=== PATIENT | male | born 1990 | race Caucasian/White ===

== ENCOUNTER 2016-10-03 01:30 | Emergency (ER) | payer BC ==
[2016-10-03] MEDS ORDERED: Sodium Chloride 0.9% 1,000 ML IV ONE (01:38)
[2016-10-03] MEDS ORDERED: Pantoprazole 40 MG Vial IVPUSH ONE (01:40)
[2016-10-03] MEDS ORDERED: Ondansetron 4 MG/2 ML SDV IVPUSH ONE (01:40)
[2016-10-03] MEDS ORDERED: MVI, Adult with Vitamin K 10 ML, Thiamine 100 MG, Folic Acid 1 MG, Magnesium Sulfate 3 ... IV SCH ×5 (01:45)
--- NOTE | 2016-10-03 01:52 | EDM.PDOC ---
ED HPI SEIZURE COMPLAINT - General Stated Complaint: UNCONSIOUS,ETOH Time Seen by Provider: 10/03/16 01:30 Source: Reports: Patient, EMS, Family (girlfriend arrived later) History Limitations: Reports: Intoxication - History of Present Illness INITIAL COMMENTS - FREE TEXT/NARRATIVE: 25 years old w lopez come to the ed after he passed out and fell of a bar chair. Witnessed (girlfriend), no trauma, went slowly down on the floor.EMS was called. As the pt arrived here in the ed, he was intoxicated, not responding to voice but strong pain stimuli. No family member was present. No seizure activity was noticed. The pt is a [employer] officer. This is his first visit to this ed. Symptom Onset Date: 10/02/16 Symptom Onset Time: 14:00 Timing/Duration: Reports: hour(s): Event Occurred (Where): other (Bar) Event (Witnessed/Unwitnessed): witnessed Location: Reports: generalized Severity: moderate Context: Reports: recent ETOH Pre Event Symptom(s): Reports: confusion, nausea/vomiting Event Symptoms: Reports: syncope - Related Data Allergies/ADRs: Allergies Allergy/AdvReac Type Severity Reaction Status Date / Time No Known Allergies Allergy Verified 10/03/16 01:50 Home Meds: Home Meds NK [No Known Home Meds] 10/03/16 [History] ED ROS GENERAL - Review of Systems Review Of Systems: Unable To Obtain - Physical Exam Exam: See Below Exam Limited By: Intoxication General Appearance: alert, WD/WN, obtunded, mild distress, moderate distress Eye Exam: bilateral eye: other (pinpoint pupils) Ears: normal external exam, normal canal, hearing grossly normal Nose: normal inspection, normal mucosa, no blood Throat/Mouth: Normal inspection, Normal lips, Normal teeth, Normal gums, Normal oropharynx, Normal voice, No airway compromise Head Exam: atraumatic, normocephalic Neck: normal inspection, supple, non-tender, full range of motion Respiratory/Chest: no respiratory distress, lungs clear, normal breath sounds, no accessory muscle use, chest non-tender Cardiovascular: normal peripheral pulses, regular rate, rhythm, no edema, no gallop, no JVD, no murmur, no rub GI/Abdominal: normal bowel sounds, soft, non tender, no organomegaly, no distention, no abnormal bruit, no mass (Male) Exam: No hernia, Normal inspection Rectal (Males) Exam: Deferred Neuro Exam (Abbreviated): unresponsive (to voice, responds to painful stimuly) Back Exam: normal inspection, full range of motion, NT Extremities: normal inspection, normal range of motion, non-tender, no pedal edema, normal capillary refill Psychiatric: other (intoxicated) Skin Exam: Warm, Dry, Intact, Normal color, No rash Course - Vital Signs Text/Narrative:: 25 years old w m come to the ed after he passed out and fell of a bar chair. Witnessed (girlfriend), no trauma, went slowly down on the floor.EMS was called. As the pt arrived here in the ed, he was intoxicated, not responding to voice but strong pain stimuli. No family member was present. No seizure activity was noticed. The pt is a [employer]. This is his first visit to this ed. PE: Obtunded, ETOH Intoxicated Labs: ETOH: 0.260 Imaging Not insicated Impression: ETOH intoxicated Tx: Banana bad, NS Reexam: Pt is ambulating fine Plan: D/C to home with SO Last Recorded V/S: Last Vital Signs Temp 36.8 C 10/03/16 01:30 Pulse 102 H 10/03/16 01:30 Resp 16 10/03/16 01:30 BP 122/66 10/03/16 01:45 Pulse Ox 96 10/03/16 01:30 - Orders/Labs/Meds Orders: Active Orders 24 hr Category Date Time Status MVI, Adult with Vitamin K [Infuvite Adult] 10 ml Med 10/03/16 01:45 Active Thiamine [Vitamin B-1] 100 mg Folic Acid 1 mg Magnesium Sulfate [Magnesium Sulfate 50%] 3 gm Sodium Chloride 0.9% [Normal Saline] 1,000 ml IV ASDIRECTED Sodium Chloride 0.9% [Normal Saline] 1,000 ml Med 10/03/16 04:45 Active IV ASDIRECTED Medication Orders Multivitamins/Minerals 10 ml/Thiamine HCl 100 mg/ Folic Acid 1 mg/ Magnesium Sulfate 3 gm/ Sodium Chloride 1,017.2 mls @ 500 mls/hr IV ASDIRECTED STAR Last Admin: 10/03/16 02:43 Dose: 500 mls/hr Sodium Chloride (Normal Saline) 1,000 mls @ 250 mls/hr IV ASDIRECTED STAR Last Admin: 10/03/16 04:41 Dose: 250 mls/hr Labs: Laboratory Tests 10/03/16 10/03/16 10/03/16 Range/Units 01:40 01:40 01:40 WBC 7.6 (4.5-12.0) X10-3/uL RBC 4.58 (4.30-5.75) x10(6)uL Hgb 13.3 (11.5-15.5) g/dL Hct 39.9 (30.0-51.3) % MCV 87.1 (80-96) fL MCH 28.9 (27.7-33.6) pg MCHC 33.2 (32.2-35.4) g/dL RDW 13.0 (11.5-15.5) % Plt Count 273 (125-369) X10(3)uL MPV 8.1 (7.4-10.4) fL Neut % (Auto) 54.1 (46-82) % Lymph % (Auto) 36.4 (13-37) % Karnes % (Auto) 6.9 (4-12) % Eos % (Auto) 2 (1.0-5.0) % Baso % (Auto) 1 (0-2) % Neut # 4.2 (1.6-8.3) # Lymph # 2.7 (0.6-5.0) # Karnes # 0.5 (0.0-1.3) # Eos # 0.1 (0.0-0.8) # Baso # 0.1 (0.0-0.2) # Sodium 141 (135-145) mmol/L Potassium 3.7 (3.5-5.3) mmol/L Chloride 110 (100-110) mmol/L Carbon Dioxide 19 L (23-29) mmol/L BUN 17 (5-20) mg/dL Creatinine 1.1 (0.6-1.3) mg/dL Est Cr Clr Drug Dosing TNP Estimated GFR (MDRD) > 60 (>60) BUN/Creatinine Ratio 15.5 (9-20) Glucose 124 H (80-116) mg/dL Calcium 8.5 L (8.6-10.2) mg/dL Urine Opiates Screen (NEGATIVE) Ur Oxycodone Screen (NEGATIVE) Ur Propoxyphene Screen (NEGATIVE) Ur Barbituates Screen (NEGATIVE) Ur Tricyclics Screen (NEGATIVE) Ur Phencyclidine Scrn (NEGATIVE) Ur Amphetamine Screen (NEGATIVE) Urine MDMA Screen (NEGATIVE) U Benzodiazepines Scrn (NEGATIVE) U Cocaine Metab Screen (NEGATIVE) U Marijuana (THC) Screen (NEGATIVE) Ethyl Alcohol 0.26 H* (<0.01) % 10/03/16 Range/Units 05:40 WBC (4.5-12.0) X10-3/uL RBC (4.30-5.75) x10(6)uL Hgb (11.5-15.5) g/dL Hct (30.0-51.3) % MCV (80-96) fL MCH (27.7-33.6) pg MCHC (32.2-35.4) g/dL RDW (11.5-15.5) % Plt Count (125-369) X10(3)uL MPV (7.4-10.4) fL Neut % (Auto) (46-82) % Lymph % (Auto) (13-37) % Karnes % (Auto) (4-12) % Eos % (Auto) (1.0-5.0) % Baso % (Auto) (0-2) % Neut # (1.6-8.3) # Lymph # (0.6-5.0) # Karnes # (0.0-1.3) # Eos # (0.0-0.8) # Baso # (0.0-0.2) # Sodium (135-145) mmol/L Potassium (3.5-5.3) mmol/L Chloride (100-110) mmol/L Carbon Dioxide (23-29) mmol/L BUN (5-20) mg/dL Creatinine (0.6-1.3) mg/dL Est Cr Clr Drug Dosing Estimated GFR (MDRD) (>60) BUN/Creatinine Ratio (9-20) Glucose (80-116) mg/dL Calcium (8.6-10.2) mg/dL Urine Opiates Screen Negative (NEGATIVE) Ur Oxycodone Screen Negative (NEGATIVE) Ur Propoxyphene Screen Negative (NEGATIVE) Ur Barbituates Screen Negative (NEGATIVE) Ur Tricyclics Screen Negative (NEGATIVE) Ur Phencyclidine Scrn Negative (NEGATIVE) Ur Amphetamine Screen Negative (NEGATIVE) Urine MDMA Screen Negative (NEGATIVE) U Benzodiazepines Scrn Negative (NEGATIVE) U Cocaine Metab Screen Negative (NEGATIVE) U Marijuana (THC) Screen Negative (NEGATIVE) Ethyl Alcohol (<0.01) % Meds: Medications Generic Name Dose Route Start Last Admin Trade Name Freq PRN Reason Stop Dose Admin Multivitamins/Minerals 10 ml/ 1,017.2 mls @ 500 mls/hr 10/03/16 01:45 02:43 Thiamine HCl 100 mg/ Folic IV 500 mls/hr Acid 1 mg/ Magnesium Sulfate 3 ASDIRECTED STAR Administration gm/ Sodium Chloride Sodium Chloride 1,000 mls @ 250 mls/hr 10/03/16 04:45 10/03/16 04:41 Normal Saline IV 250 mls/hr ASDIRECTED STAR Administration Discontinued Medications Generic Name Dose Route Start Last Admin Trade Name Freq PRN Reason Stop Dose Admin Sodium Chloride 1,000 mls @ 999 mls/hr 10/03/16 01:38 10/03/16 01:45 Normal Saline IV 10/03/16 02:38 999 mls/hr .BOLUS ONE Administration Metoclopramide HCl 10 mg 10/03/16 05:28 10/03/16 05:31 Reglan IV 10/03/16 05:29 10 mg ONETIME ONE Administration Ondansetron HCl 8 mg 10/03/16 01:40 10/03/16 02:16 Zofran IVPUSH 10/03/16 01:41 8 mg ONETIME ONE Administration Pantoprazole Sodium 40 mg 10/03/16 01:40 10/03/16 02:16 Protonix Iv IVPUSH 10/03/16 01:41 40 mg ONETIME ONE Administration Departure - Departure Time of Disposition: 07:40 Disposition: Home, Self-Care 01 Condition: good Clinical Impression: ETOH abuse, Dehydration Instructions: Alcohol Intoxication Referrals: PCP,None [Primary Care Provider] - Forms: ED Department Discharge Additional Instructions: Please increase water intake, please follow up, please come back if your symptoms get worse acutely. - My Orders Last 24 Hours: My Active Orders 10/03/16 01:45 MVI, Adult with Vitamin K [Infuvite Adult] 10 ml Thiamine [Vitamin B-1] 100 mg Folic Acid 1 mg Magnesium Sulfate [Magnesium Sulfate 50%] 3 gm Sodium Chloride 0.9% [Normal Saline] 1,000 ml IV ASDIRECTED 10/03/16 04:45 Sodium Chloride 0.9% [Normal Saline] 1,000 ml IV ASDIRECTED - Assessment/Plan Last 24 Hours: My Active Orders 10/03/16 01:45 MVI, Adult with Vitamin K [Infuvite Adult] 10 ml Thiamine [Vitamin B-1] 100 mg Folic Acid 1 mg Magnesium Sulfate [Magnesium Sulfate 50%] 3 gm Sodium Chloride 0.9% [Normal Saline] 1,000 ml IV ASDIRECTED 10/03/16 04:45 Sodium Chloride 0.9% [Normal Saline] 1,000 ml IV ASDIRECTED
[2016-10-03] MEDS ORDERED: Sodium Chloride 0.9% 1,000 ML IV SCH (04:45)
[2016-10-03] MEDS ORDERED: Metoclopramide 10 MG/2 ML SDV IV ONE (05:28)
[2016-10-03 08:31] VITALS: BP 100/54
== END 2016-10-03 07:47 | disposition home or self-care (01) ==
LOC: FB.ED 01:30
DX: E86.0 Dehydration (principal); F10.129 Alcohol abuse with intoxication, unspecified
CPT/HCPCS: 36415; 80048; 80305; 85025; 96361; 96365; 96366; 96375; 99284; C9113; G0480; J2405; J2765; J3411; J3475; J7040; J3490